=== PATIENT | female | born 1940 | race Caucasian/White ===

== ENCOUNTER → 2016-07-16 | Outpatient (CLI) | payer OTHER, MEDICARE ==
[~2016-07-16] MED LIST: BENICAR40 MG PO; BYSTOLIC 5 MG5 M1 PO; CARDIZEM CD360 MG PO; CATAPRESS3 TOP; CELEBREX 200 M200 MG PO; CLONIDINE0.1 PO; COLACE 100 MG100 MG PO; COUMADIN 5 MG TA5 M1 PO; COUMADIN PO; CRESTOR20 MG PO; FLEXERIL; FOSAMAX 70 MG T70 M1 PO; FOSAMAX 70 MG T70 MG; GLUCOPHAGE XR500 MG PO; GLUCOPHAGE500 MG PO; IRON325 PO; JANUMET 50-1,01 EACH PO; JANUMET 50-5001 EACH; K-DUR 20 MEQ T20 MEQ PO; LAMISIL250 MG PO; LOPRESSOR50 PO; MULTIVITAMINS1 EAC7 PO; NEURONTIN 400400 M1 PO; NORCO 5-325 TA1 EACH PO; NORVASC 2.5 MG2.5 M1; OSTEO BI-FLEX1 EACH; PERCOCET 5-3251 EACH PO; PROTONIX40 M2 PO; TOPROL XL50 MG; TRAMADOL 50 MG50 MG PO; WHEELCHAIR1 EACH MC; ZOFRAN4 MG PO
== END ==
LOC: OPONC 09:52
DX: D50.9 Iron deficiency anemia, unspecified (principal)
CPT/HCPCS: 95000

== ENCOUNTER → 2016-08-17 | Outpatient (CLI) | payer OTHER, MEDICARE | LOC: RAD 09:46 | DX: Z12.31 Encounter for screening mammogram for malignant neoplasm of breast (principal) ==

== ENCOUNTER → 2019-05-24 | Outpatient (CLI) | payer OTHER, MEDICARE | LOC: SJCVC 10:29 | DX: I10 Essential (primary) hypertension (principal); E11.9 Type 2 diabetes mellitus without complications; D68.59 Other primary thrombophilia; E78.00 Pure hypercholesterolemia, unspecified; E78.5 Hyperlipidemia, unspecified; M19.90 Unspecified osteoarthritis, unspecified site; M81.0 Age-related osteoporosis without current pathological fracture; Z79.899 Other long term (current) drug therapy ==

== ENCOUNTER → 2019-10-09 | Outpatient (CLI) | payer OTHER, MEDICARE | LOC: SJCVCIMAG 07:32 | PROVIDERS: ATTEND Internal Medicine Cardiovascular Disease | DX: I10 Essential (primary) hypertension (principal); E78.5 Hyperlipidemia, unspecified; E78.00 Pure hypercholesterolemia, unspecified; G45.9 Transient cerebral ischemic attack, unspecified; Z86.73 Personal history of transient ischemic attack (TIA), and cerebral infarction without residual deficits ==